=== PATIENT | female | born 1970 | race Caucasian/White ===

== ENCOUNTER 2023-07-20 21:35 | Emergency (ER) | payer SELFPAY ==
[~2023-07-20] VITALS: Ht 167.6 cm; Wt 67.1 kg
[2023-07-20 22:12] VITALS: BP 130/88; PULSE 69; RESP 18; TEMP 98; O2SAT 98
[2023-07-20 22:26] LABS: APPEARANCE,URINE CLEAR (CLEAR); BILIRUBIN,URINE NEGATIVE (NEGATIVE); BLOOD, URINE 2+ (NEGATIVE); COLOR,URINE YELLOW (YELLOW); LEUKOCYTE ESTERASE ,URINE NEGATIVE (NEGATIVE); NITRITE, URINE NEGATIVE (NEGATIVE); PROTEIN,URINE NEGATIVE (NEGATIVE); UGLUCOSE NEGATIVE (NEGATIVE)
[2023-07-21] MEDS: KETOROLAC 30 MG/ML VIAL IM ONE (00:05)
[2023-07-21] MEDS: ONDANSETRON 4 MG ODT PO ONE (00:06)
[2023-07-21] MEDS: HYDROcodone/APAP 5/325 MG 1 TAB TAB PO ONE (00:06)
[2023-07-21 00:11] LABS: BASOPHILS % (AUTO) 0.2 % (0.0-2.0); EOSINOPHILS % (AUTO) 0.4 % (0.0-4.0); HEMATOCRIT 32.3 % (36-48); HEMOGLOBIN 10.5 g/dL (12.0-16.0); LYMPHOCYTES # (AUTO) 0.7 K/uL (2.5-16.5); LYMPHOCYTES % (AUTO) 13.9 % (20.5-51.1); MEAN CORPUSCULAR HEMOGLOBIN 24 pg (27-31); MEAN CORPUSCULAR HGB CONC 32 g/dL (33-37); MEAN CORPUSCULAR VOLUME 75.1 fL (80-94); MONOCYTES # (AUTO) 0.1 K/uL (0.8-1.0); MONOCYTES % (AUTO) 1.4 % (1.7-9.3); NEUTROPHILS # (AUTO) 4.3 K/uL (1.8-7.7); NEUTROPHILS % (AUTO) 84.1 % (42.2-75.2); PLATELET COUNT (AUTO) 281 K/uL (140-450); RED CELL DISTRIBUTION WIDTH 21.2 % (11.6-13.7); WHITE BLOOD COUNT (AUTO) 5.1 K/uL (4.8-10.8)
[2023-07-21 00:22] LABS: ANION GAP 14.5 (8-16); CALCIUM 8.8 mg/dL (8.5-10.1); CREATININE 0.5 mg/dL (0.6-1.3); POTASSIUM 3.5 mmol/L (3.5-5.1)
[2023-07-21] MEDS ORDERED: BEN10 PO (02:08)
[2023-07-21] MEDS ORDERED: ONDA-188 SL (02:08)
[2023-07-21] MEDS ORDERED: ACET-8905 PO (02:08)
[2023-07-21] MEDS: DICYCLOMINE 20 MG/2 ML VIAL IM ONE (02:29)
[2023-07-21 02:30] VITALS: BP 130/88; PULSE 69; RESP 18; TEMP 98; O2SAT 98
== END 2023-07-21 02:30 | disposition home or self-care (01) ==
LOC: MED 21:35
DX: R10.9 Unspecified abdominal pain (principal); N20.0 Calculus of kidney; R31.29 Other microscopic hematuria; Z79.899 Other long term (current) drug therapy
CPT/HCPCS: 36415; 74176; 80048; 81003; 85025; 87086; 96372; 99285; J0500; J1885; Q0162